=== PATIENT | female | born 1950 | race Two or more races ===

== ENCOUNTER 2017-06-26 13:00 | Outpatient (AMBR) | payer MEDICARE, MEDICAID, SELFPAY ==
--- NOTE | 2017-06-23 14:15 | PT.OIERPT ---
PT OP Initial Eval Patient Information Visit Reasons: BACK PAIN Medical Diagnosis: M15.9 Treatment Dx #1: Back Pain Start of Care: 06/23/17 Date of Onset: 6 months ago Initial Assessment Subjective Pt is a 67 y/o female c/o chronic back and hip pain (06/26) started several months ago. Pt mention that her back has arthritis and pinch nerve. Pt currently has difficulty with prolonged sitting, standing, lifting, chores, cooking, cleaning, and self care activities. Objective L/S AROM: all motions are WFL but pain towards end range in all plane Hip PROM: all motions are WFL except IR Hip MMTs: grossly 3+/5 Oswestry score: 24% Assessment Pt demonstrate back pain with mobility deficits leading to decline function and difficulty with ADLs. Pt will benefit from physical therapy to increase strength, mobility, and work on functional tasks. Short Term and Custodial Goals 1) Increase L/S AROM WNL and decrease oswestry score to 10% in 4 wks to be able to perform ambulation with less difficulty 2) Increase bilateral hip AROM WFL in 4 wks to be able to perform self care activities 3) Decrease back pain to 2/10 in 4 wks to be able to perform chores 4) Indep with HEP Treatment Plan 1) Manual Therapy 2) Therapeutic Activities 3) Therapeutic Exercises 4) Modalities (ice, heat, e-stim) Frequency and Duration 2 x wk for 4 wks Certification Dates: 06/23/17 to 09/23/17 Office Procedures PT Outpatient G-Codes Date of Service PT Date of Service: 06/23/17 G-Codes Walking & Moving Around Mobility Current Status G-Code: G8978: CK 40-60% Mobility Status G-Code: G8979: CI 1-20% PT Procedures PT Date of Service: 06/23/17 OP PT Eval Mod Complex 30 minutes: Yes
--- NOTE | 2017-06-23 14:22 | PTNOTE_ITS ---
PT OP Initial Eval Patient Information Visit Reasons: BACK PAIN Medical Diagnosis: M15.9 Treatment Dx #1: Back Pain Start of Care: 06/23/17 Date of Onset: 6 months ago Initial Assessment Subjective Pt is a 67 y/o female c/o chronic back and hip pain (06/26) started several months ago. Pt mention that her back has arthritis and pinch nerve. Pt currently has difficulty with prolonged sitting, standing, lifting, chores, cooking, cleaning, and self care activities. Objective L/S AROM: all motions are WFL but pain towards end range in all plane Hip PROM: all motions are WFL except IR Hip MMTs: grossly 3+/5 Oswestry score: 24% Assessment Pt demonstrate back pain with mobility deficits leading to decline function and difficulty with ADLs. Pt will benefit from physical therapy to increase strength , mobility, and work on functional tasks. Short Term and Nursing Home Goals 1) Increase L/S AROM WNL and decrease oswestry score to 10% in 4 wks to be able to perform ambulation with less difficulty 2) Increase bilateral hip AROM WFL in 4 wks to be able to perform self care activities 3) Decrease back pain to 2/10 in 4 wks to be able to perform chores 4) Indep with HEP Treatment Plan 1) Manual Therapy 2) Therapeutic Activities 3) Therapeutic Exercises 4) Modalities (ice, heat, e-stim) Frequency and Duration 2 x wk for 4 wks Certification Dates: 06/23/17 to 09/23/17 Office Procedures PT Outpatient G-Codes Date of Service PT Date of Service: 06/23/17 G-Codes Walking & Moving Around Mobility Current Status G-Code: G8978: CK 40-60% Mobility Status G-Code: G8979: CI 1-20% PT Procedures PT Date of Service: 06/23/17 OP PT Eval Mod Complex 30 minutes: Yes
--- NOTE | 2017-06-26 14:26 | PT.ODAYNRPT ---
PT Outpatient Daily Note Date of Service: June 26, 2017 OP Daily Note Visit Reasons: BACK PAIN Outpatient Physical Therapy Treatment Date: 06/26/17 Subjective: pt reported having soreness of the back upon visit today. Objective: see flow sheet. Assessment: pt did well today and tolerated all ther ex with no increase in soreness nor had pain. pt needed cuing to keep trunk upright position during standing exercise. noted good mobility during exercises in supine and no facial expressions. pt had no questions post ther ex. Plan: continue POC per PT. Length of Time (minutes) of Treatment: 30 Minutes Office Procedures PT Outpatient G-Codes Date of Service PT Date of Service: 06/23/17 G-Codes Walking & Moving Around Mobility Current Status G-Code: G8978: CK 40-60% Mobility Status G-Code: G8979: CI 1-20% PT Procedures PT Date of Service: 06/23/17 OP PT Eval Mod Complex 30 minutes: Yes PT Procedures PT Date of Service: 06/26/17 Therapeutic Exercise 30 minutes: Yes
== END 2017-07-17 23:59 ==
PROVIDERS: PCP Family Medicine; Referring Provider Family Medicine; Visit Provider Internal Medicine Rheumatology
DX: I10 Essential (primary) hypertension (principal)
CPT/HCPCS: 97110; 97162; G8978; G8979

== ENCOUNTER 2020-04-19 08:53 | Outpatient (AMBR) | payer MEDICARE, MEDICAID, SELFPAY ==
--- NOTE | 2020-04-19 09:10 | PT.OIERPT ---
PT OP Initial Eval Patient Information Visit Reasons: wrist pain Medical Diagnosis: M25.531 Treatment Dx #1: B wrist and hand pain Start of Care: 04/19/20 Date of Onset: 4 weeks ago Initial Assessment Subjective Pt is 70 yr old occitan speaking female who reports long Hx of rheumatoid arthritis in the hands and wrists. About 4 weeks ago the pain worsened in the hands, wrists and R elbow. Increased pain in the morning and with HH chores, lifting and carrying objects. PLOF: pt had full use of hands and wrists without pain. Pain level is 8-9/10 in the wrists and hands. 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 PMH: RA, thyroidism, GERD, anxiety, tinnitis Imaging: with provider Pt goal: not sure how therapy can help arthritis Objective B hand manager custom strength: R: 7 lbs, L 8 lbs Digit extension: to neutral Flexion: limited to about 50% in all planes Wrist ROM: Flexion: 45 deg B Extension: 40 deg TTP: B wrists moderate Observation: hypertrophic joints of hand with medial/lateral deviations Assessment Pt presentation consistent with PMH of RA with decreased hand strength, ROM and increased pain. Pt has very weak manager custom strength B and 1st MCP's are unable to extend, only flex. Pt requires skilled therapy to reduce pain and improve ROM and she has fair rehab potential. Short Term and Buttonhole Maker Hand Goals 1. Ind with HEP 2. Improved manager custom strength to at least 12 lbs B 3. Pt will be able to lift and carry objects like a plate without dropping Treatment Plan 60 day POC to complete visits 1. Manual therapy 2. Therex 3. Modalities as indicated, moist heat, ice, estim Frequency and Duration 2x a week for 4 weeks Certification Dates: 04/19/20 to 07/20/20 Office Procedures PT Procedures PT Date of Service: 04/19/20 OP PT Eval Mod Complex 30 minutes: Yes
== END 2020-05-17 23:59 | disposition home or self-care (01) ==
PROVIDERS: PCP Family Medicine; Referring Provider Family Medicine; Visit Provider Nurse Practitioner Family
DX: M25.531 Pain in right wrist (principal); M25.532 Pain in left wrist
CPT/HCPCS: 97162

== ENCOUNTER → 2024-02-25 | Outpatient (CLI) | payer MEDICARE, MEDICAID, SELFPAY ==
--- NOTE | 2024-02-25 | XR_ITS ---
Examination: Lumbar spine 7 views Technique one AP lateral coned lateral lower lumbar spine standing lateral flexion standing lateral extension LECHUGA MARCO ANTONIO 7 views Exam date and time: February 25, 2024 1209 hours INDICATIONS: Patient fell 2 days ago with injury to lower back, lower back pain. FINDINGS: Severe osteopenia Lower lumbar dextroscoliosis 16 degrees Diffuse advanced facet arthropathy No acute lumbar fracture Grade 1 anterolisthesis L3 on L2 Diffuse advanced lumbar degenerative disc disease IMPRESSION: No acute lumbar fracture Diffuse advanced lumbar degenerative disc disease No significant range of motion to flexion and extension
== END | disposition home or self-care (01) ==
PROVIDERS: PCP Family Medicine; Referring Provider Physical Medicine & Rehabilitation Pain Medicine; Visit Provider Physical Medicine & Rehabilitation Pain Medicine
DX: M51.369 Other intervertebral disc degeneration, lumbar region without mention of lumbar back pain or lower extremity pain (principal); S39.92XA Unspecified injury of lower back, initial encounter; W19.XXXA Unspecified fall, initial encounter
CPT/HCPCS: 72114

== ENCOUNTER → 2024-03-12 | Outpatient (CLI) | payer MEDICARE, MEDICAID, SELFPAY ==
--- NOTE | 2024-03-12 10:46 | XR_ITS ---
EXAMINATION: Cervical spine, 5 views Technique: Cervical spine AP, AP odontoid, lateral, bilateral obliques, 5 views Exam date and time: March 12, 2024 1058 hours INDICATIONS: Patient fell 2 weeks ago with injury to the neck, neck pain. FINDINGS: 1.5 mm anterolisthesis C5 on C4 No cervical fracture Intact odontoid Moderate to advanced degenerative disc disease C4-C5, C5-C6, C6-C7 with mild to moderate bilateral neural foraminal stenosis at these levels IMPRESSION: No acute fracture
== END | disposition home or self-care (01) ==
PROVIDERS: PCP Nurse Practitioner Family; Referring Provider Nurse Practitioner Family; Visit Provider Nurse Practitioner Family
DX: S19.9XXA Unspecified injury of neck, initial encounter (principal); W19.XXXA Unspecified fall, initial encounter
CPT/HCPCS: 72050

== ENCOUNTER → 2024-05-24 | Outpatient (CLI) | payer MEDICARE, MEDICAID, SELFPAY ==
[2024-05-24 14:22] LABS: Basophils % (Auto) 0 % (0-2.5); Eosinophils % (Auto) 1 % (0-10); Hematocrit 35.8 % (36.0-46.0); Hemoglobin 12.5 g/dL (12.0-16.0); Immature Granulocytes % (Auto) 0 % (0-0); Immature Granulocytes Auto 0.03 Thou/mm3 (0.00-0.00); Lymphocytes # (Auto) 1.9 Thou/mm3 (1.0-4.8); Lymphocytes % (Auto) 22 % (10-50); Mean Corpuscular HGB Conc 34.9 g/dl (31.0-37.0); Mean Corpuscular Hemoglobin 33.4 pg (25.0-35.0); Mean Corpuscular Volume 96 fL (80-100); Monocytes # (Auto) 0.5 Thou/mm3 (0.0-0.8); Monocytes % (Auto) 5 % (0-12); Neutrophils # (Auto) 6.2 Thou/mm3 (1.8-7.7); Neutrophils % (Auto) 72 % (37-80); Nucleated Red Blood Cell % 0 /100 WBC (0); Platelet Count 215 Thou/mm3 (140-440); RDW Standard Deviation 45.5 fL (36.4-46.3); Red Blood Count 3.74 Miln/mm3 (4.00-5.20); White Blood Count 8.7 Thou/mm3 (3.6-11.0)
[2024-05-24 14:34] LABS: Anion Gap 6 (7-16); BUN/Creatinine Ratio 13 Ratio (12-20); Blood Urea Nitrogen 12 mg/dL (9-23); Calcium 8.8 mg/dL (8.3-10.6); Calcium (Corrected) 8.8 mg/dL (8.5-10.1); Carbon Dioxide 30.1 mMol/L (20.0-31.0); Chloride 101 mMol/L (98-107); Creatinine (Component) 0.9 mg/dL (0.6-1.3); Glucose 134 mg/dL (74-106); Osmolality,Calculated 275 (275-295); Phosphorous 4.3 mg/dL (2.4-5.1); Potassium 4.3 mMol/L (3.4-5.1); Sodium 137 mMol/L (136-145); eGFR > 60 See Note
[2024-05-24 16:08] LABS: Sed Rate (ESR) 7 mm/hr (0-30)
[2024-05-31 06:43] LABS: hs-CRP* 4.2 mg/L
== END | disposition home or self-care (01) ==
PROVIDERS: PCP Family Medicine; Referring Provider Ophthalmology; Visit Provider Ophthalmology
DX: H49.11 Fourth [trochlear] nerve palsy, right eye (principal)
CPT/HCPCS: 36415; 80069; 85025; 85652; 86141

== ENCOUNTER 2024-05-28 16:20 | Emergency (ER) | payer MEDICARE, MEDICAID, SELFPAY ==
[2024-05-28 16:42] VITALS: BP 144/74; PULSE 69; RESP 17; TEMP 36.9; O2SAT 96; BMI 24.2
--- NOTE | 2024-05-28 16:56 | XR_ITS ---
Examination: CT brain head without contrast. 2-D sagittal coronal reconstructions Date and time of exam:May 28, 2024 1718 hrs. Indications: Right hip pain and dizziness beginning 2 weeks ago CTDI: vol (mGy):45.7 DLP: (mGycm):854 Technique: Multiple CT axial sections of the brain have been obtained, 5 mm slice thickness. Contrast has not been administered. 2-D sagittal, coronal reconstructions have been obtained Low dose protocols were performed. One or more of the following dose reduction techniques were used; automated exposure control, adjustment of the mA and/or KV according to patient size, use of iterative reconstruction technique. Findings: No significant ventricular enlargement. Intra-axial or extra-axial hemorrhage density is not seen. No mass effect or midline shift Basal cisterns are not remarkable. Fourth ventricle is midline. Cranial vault intact. Significant right chronic mastoiditis Impression: Negative for acute hemorrhage, mass effect or midline shift
--- NOTE | 2024-05-28 16:57 | PD.EDRME ---
Rapid Medical Screening Exam RME Arrival date/time: 05/28/24 16:20 74-year-old female presents to the emergency department for complaints of headache Chief Complaint: Headache Vital signs: Vital Signs Temperature 98.5 F 05/28/24 16:42 Pulse Rate 69 05/28/24 16:42 Respiratory Rate 17 05/28/24 16:42 Blood Pressure 144/74 H 05/28/24 16:42 Pulse Oximetry (%) 96 05/28/24 16:42 Oxygen Delivery Method Room Air 05/28/24 16:42
[2024-05-28 17:40] LABS: Basophils % (Auto) 1 % (0-2.5); Eosinophils # (Auto) 0.1 Thou/mm3 (0.0-0.5); Eosinophils % (Auto) 1 % (0-10); Hematocrit 37.4 % (36.0-46.0); Hemoglobin 13.4 g/dL (12.0-16.0); Immature Granulocytes % (Auto) 0 % (0-0); Immature Granulocytes Auto 0.01 Thou/mm3 (0.00-0.00); Lymphocytes # (Auto) 1.6 Thou/mm3 (1.0-4.8); Lymphocytes % (Auto) 25 % (10-50); Mean Corpuscular HGB Conc 35.8 g/dl (31.0-37.0); Mean Corpuscular Hemoglobin 32.8 pg (25.0-35.0); Mean Corpuscular Volume 91 fL (80-100); Monocytes # (Auto) 0.6 Thou/mm3 (0.0-0.8); Monocytes % (Auto) 10 % (0-12); Neutrophils # (Auto) 3.9 Thou/mm3 (1.8-7.7); Neutrophils % (Auto) 62 % (37-80); Nucleated Red Blood Cell % 0 /100 WBC (0); Platelet Count 228 Thou/mm3 (140-440); RDW Standard Deviation 42.7 fL (36.4-46.3); Red Blood Count 4.09 Miln/mm3 (4.00-5.20); White Blood Count 6.2 Thou/mm3 (3.6-11.0)
[2024-05-28 17:57] LABS: Glucose Estimated Average 105 mg/dL (80-131); Hemoglobin A1C 5.3 % Hgb (4.8-6.0)
[2024-05-28 17:58] LABS: Alanine Aminotransferase 14 U/L (10-49); Albumin, Serum 4.4 gm/dL (3.4-4.8); Albumin/Globulin Ratio 1.5 (1.2-2.2); Alkaline Phosphatase 63 U/L (46-116); Anion Gap 7 (7-16); Aspartate Amino Transferase 27 U/L (0-34); BUN/Creatinine Ratio 15 Ratio (12-20); Bilirubin,Total 0.8 mg/dL (0.3-1.2); Blood Urea Nitrogen 12 mg/dL (9-23); Calcium 9.3 mg/dL (8.3-10.6); Calcium (Corrected) 9.3 mg/dL (8.5-10.1); Carbon Dioxide 28.3 mMol/L (20.0-31.0); Chloride 101 mMol/L (98-107); Creatinine (Component) 0.8 mg/dL (0.6-1.3); Estimated Creatinine Clearance 45.7 mL/min (>60); Glucose 107 mg/dL (74-106); Osmolality,Calculated 271 (275-295); Potassium 3.8 mMol/L (3.4-5.1); Sodium 136 mMol/L (136-145); Total Protein 7.4 gm/dL (5.7-8.2); eGFR > 60 See Note
--- NOTE | 2024-05-28 20:49 | PD.EDHA ---
ED Headache RME/HPI General Chief Complaint: Headache Stated Complaint: headache and diplopia Time Seen by Provider: 05/28/24 18:55 Arrival date/time: 05/28/24 16:20 RME / HPI RME / HPI Narrative: 74-year-old female patient came in for evaluation regarding headache. Patient's been having a headache for more than 2 weeks, associated with diplopia. Patient was already seen by PCP, and was referred to branch service specialist which the patient's saw few days ago. Her branch service specialist ordered laboratory workup and possible MRI outpatient. Patient headache is getting worst, describes dull ache, severity moderate, for the last few days that is where the patient decided to go to the emergency room. Patient is ambulatory. Denies any other complaints no medications taken prior to arrival. Denies any head trauma or fall. Denies any fever. Denies any slurring of speech. Related Data Home Medications ?Medication ?Instructions ?Recorded ?Confirmed Levothyroxine * (SYNTHROID *) 100 mcg PO QDAY ##0 10/10/07 Propranolol Hcl 20 mg PO HS ##0 05/14/13 08/19/23 omeprazole 20 mg capsule,delayed 20 mg PO HS ##0 05/14/13 08/19/23 release (Prilosec) atorvastatin 10 mg tablet 10 mg PO QDAY 08/19/23 08/19/23 fexofenadine 180 mg tablet 180 mg PO QDAY 08/19/23 08/19/23 gabapentin 100 mg capsule 100 mg PO TID 08/19/23 08/19/23 lidocaine 5 % topical patch 1 patch topical 08/19/23 meloxicam 7.5 mg tablet 7.5 mg PO BID 08/19/23 08/19/23 naproxen 500 mg tablet 500 mg PO Q12H PRN Pain 08/19/23 08/19/23 quetiapine 50 mg tablet 25 mg PO HS 08/19/23 08/19/23 Previous Rx's ?Medication ?Instructions ?Recorded acetaminophen 300 mg-codeine 30 mg 1 tab PO TID PRN pain #20 tabs 05/28/24 tablet Allergies Allergy/AdvReac Type Severity Reaction Status Date / Time No Known Allergies Allergy Verified 05/28/24 16:23 Review of Systems Review of Systems Narrative Review of Systems: Review of system reviewed and within normal limits except mentioned in HPI ED Exam Narrative Physical exam: VITAL SIGNS: Reviewed. GENERAL APPEARANCE: Alert and interactive, follows commands, no acute distress, HEAD AND FACE: Non-traumatic. ENT: PERRL, pink conjunctivitis, eyelid no trauma, Mucous membrane moist., Patient told me that she is seeing double vision all the time. NECK: Supple, nontender, no nuchal rigidity. CHEST: No tenderness, no crepitus, no paradoxical movement, no retractions. LUNGS: Clear, well ventilated, symmetric, no rales, no wheezing, no ronchi, no stridor, good breath sounds bilaterally. HEART: Regular rate, regular rhythm, no murmur, no gallops. ABDOMEN: Soft, positive bowel sounds, nondistended, no guarding, nontender, no rebound, no masses, RECTAL: Deferred. GENITAL: Deferred. NEUROLOGICAL: Gross motor function intact sensory function intact, Appropriate for age. MUSCULOSKELETAL: low back nontender, full range of motion. EXTREMITIES: Nontender, full range of motion. SKIN: Color pink, dry, no rash, no lacerations, no abrasions, no contusions. LYMPHATICS: Deferred. Course Quality Measures none Orders Category Date Time Status CT head/brain wo con Stat Exams 05/28/24 16:56 Completed A1C [Glycohemoglobin w (eAG)] Stat Lab 05/28/24 17:26 Completed CBC Stat Lab 05/28/24 17:26 Completed CMP [Comprehensive Metabolic Panel] Stat Lab 05/28/24 17:26 Completed Ketorolac Inj [Toradol Inj] Med 05/28/24 20:21 Discontinued 30 mg IM X1 ONE Vital Signs Vital signs: Vital Signs Temperature 98.5 F 05/28/24 16:42 Pulse Rate 69 05/28/24 16:42 Respiratory Rate 17 05/28/24 16:42 Blood Pressure 144/74 H 05/28/24 16:42 Pulse Oximetry (%) 96 05/28/24 16:42 Oxygen Delivery Method Room Air 05/28/24 16:42 Headache MDM Narrative MDM Narrative:: 74-year-old female patient came in for evaluation regarding headache. Patient's been having a headache for more than 2 weeks, associated with diplopia. Patient was already seen by PCP, and was referred to branch service specialist which the patient's saw few days ago. Her branch service specialist ordered laboratory workup and possible MRI outpatient. Patient headache is getting worst, describes dull ache, severity moderate, for the last few days that is where the patient decided to go to the emergency room. Patient is ambulatory. Denies any other complaints no medications taken prior to arrival. Denies any head trauma or fall. Denies any fever. Denies any slurring of speech. Patient's workup today all came back unremarkable CBC no leukocytosis no sign of infection, CMP unremarkable hemoglobin A1c is normal CT scan of the head also came back unremarkable. Results discussed with the patient. And family Patient was advised to follow-up with the branch service specialist again for her symptoms. Patient told me that she had an appointment in few days Patient data External records reviewed:: None Clinical information provided by:: patient and family Social determinants that could affect healthcare access:: none Patient has the following chronic illnesses:: Hypertension How is presenting disease/condition affected by chronic disease/condition?: uneffected by Evaluation data The following diagnostics were reviewed and interpreted by me:: lab results and radiology exam(s) Lab and/or radiology exams considered but not ordered:: None Interpretation Summary: See results MDM Medications / Prescriptions Medications or Prescriptions considered but not ordered:: None Medication administrations:: Medication Administration History Discontinued Medications Ketorolac Tromethamine (Ketorolac Inj 60 Mg/2 Ml Vial) 30 mg IM X1 ONE Stop: 05/28/24 20:22 Toradol IM Consultations Consultation(s) initiated? (list below): No Diagnosis Differential diagnosis headache: tension headache and headache Most likely diagnosis given after review of the tests above:: Diplopia, headache Admission Indicated Admission indicated?: not indicated Admission Request Was there a request for admission?: No Disposition Plan Disposition Plan: Discharge Discharge Attestation Discharge Attestation: The patient and all family members were given an opportunity to ask questions and understood the discharge instructions. Discharge instructions specifically effects, indications for sooner follow up or return to the emergency department, and the expected course of current diagnosis. Patient condition: Stable Discharge Plan Plan Patient Disposition: HOME (Self Care) Disposition Comment: Stable Prescriptions/Referrals Prescriptions/Med Rec: New acetaminophen-codeine 300-30 mg tablet 1 tab PO TID PRN (Reason: pain) Qty: 20 0RF No Action Levothyroxine * (SYNTHROID *) 75 MCG tablet 100 mcg PO QDAY Qty: 0 Patient Comments: 1 TAB DAILY omeprazole [Prilosec] 20 MG capsule,delayed release(DR/EC) 20 mg PO HS Qty: 0 Patient Comments: TO SUPPRESS GASTRIC ACID SECRETIONS Propranolol Hcl 20 MG tablet 20 mg PO HS Qty: 0 atorvastatin 10 mg tablet 10 mg PO QDAY Patient Comments: AGGIE SOUSA JESSIESheree MADALYN HERNANDEZ D FOR 90 DAYS fexofenadine 180 mg Tablet 180 mg PO QDAY meloxicam 7.5 mg tablet 7.5 mg PO BID Patient Comments: TAKE 1 TABLET BY MOUTH TWICE A DAY NEEDED WITH FOOD lidocaine 5 % adhesive patch,medicated 1 patch TOPICAL Patient Comments: APPLY 1 PATCH DAILY EXTERNALLY AND REMOVE AFTER 12 HOURS FOR 30 DAYS. gabapentin 100 mg capsule 100 mg PO TID Patient Comments: TAKE 1 CAPSULE BY MOUTH THREE TIMES A DAY naproxen 500 mg Tablet 500 mg PO Q12H PRN (Reason: Pain) quetiapine 50 mg tablet 25 mg PO HS Referrals: Russell Redmond MD [Primary Care Provider] - In 1 week Problem List Clinical Impression: Headache, Diplopia Patient/Caregiver Discharge Instructions Discharge Activity: activity as tolerated Education Materials: Self-Care for Headaches Additional Instructions: Thank you for the opportunity for serving you today. You are stable for discharged . You are advised to: Follow-up with your PCP in 1 to 2 days Follow-up with your branch service specialist as instructed Return to ED for worsening of symptoms Increase oral fluids Take medication as prescribed Print Language: Omani Stand Alone Forms: Sonia Award Info., Patient Portal Info Letter
[2024-05-28] MEDS: KETOROLAC INJ 60 MG/2 ML VIAL 30 MG IM (21:04)
== END 2024-05-28 21:10 | disposition home or self-care (01) ==
PROVIDERS: Nurse Practitioner Primary Care; Emergency Provider Emergency Medicine; PCP Family Medicine
DX: R51.9 Headache, unspecified (principal); H53.2 Diplopia
CPT/HCPCS: 36415; 70450; 80053; 83036; 85025; 96372; 99284; J1885

== ENCOUNTER → 2024-07-20 | Outpatient (CLI) | payer MEDICARE, MEDICAID, SELFPAY ==
[2024-07-20 11:26] LABS: C-Reactive Protein < 0.5 mg/dL (0.0-0.9)
== END | disposition home or self-care (01) ==
LOC: COPL 10:00
PROVIDERS: PCP Family Medicine; Referring Provider Family Medicine; Visit Provider Family Medicine
DX: M31.6 Other giant cell arteritis (principal)
CPT/HCPCS: 36415; 86140

== ENCOUNTER → 2024-10-27 | Outpatient (CLI) | payer MEDICARE, MEDICAID, SELFPAY ==
[2024-10-27 09:30] LABS: Basophils # (Auto) 0.0 Thou/mm3 (0.0-0.2); Basophils % (Auto) 1 % (0-2.5); Eosinophils # (Auto) 0.1 Thou/mm3 (0.0-0.5); Eosinophils % (Auto) 1 % (0-10); Hematocrit 40.1 % (36.0-46.0); Hemoglobin 13.5 g/dL (12.0-16.0); Immature Granulocytes Auto 0.01 Thou/mm3 (0.00-0.00); Lymphocytes # (Auto) 1.5 Thou/mm3 (1.0-4.8); Lymphocytes % (Auto) 35 % (10-50); Mean Corpuscular HGB Conc 33.7 g/dl (31.0-37.0); Mean Corpuscular Hemoglobin 32.0 pg (25.0-35.0); Mean Corpuscular Volume 95 fL (80-100); Monocytes # (Auto) 0.4 Thou/mm3 (0.0-0.8); Monocytes % (Auto) 9 % (0-12); Neutrophils # (Auto) 2.4 Thou/mm3 (1.8-7.7); Neutrophils % (Auto) 55 % (37-80); Nucleated Red Blood Cell # 0.00 Thou/mm3 (0.00-0.00); Nucleated Red Blood Cell % 0 /100 WBC (0); Platelet Count 180 Thou/mm3 (140-440); RDW Standard Deviation 46.1 fL (36.4-46.3); Red Blood Count 4.22 Miln/mm3 (4.00-5.20); White Blood Count 4.4 Thou/mm3 (3.6-11.0)
[2024-10-27 09:53] LABS: Alanine Aminotransferase 19 U/L (10-49); Albumin, Serum 4.4 gm/dL (3.4-4.8); Albumin/Globulin Ratio 1.6 (1.2-2.2); Alkaline Phosphatase 63 U/L (46-116); Anion Gap 7 (7-16); Aspartate Amino Transferase 28 U/L (0-34); BUN/Creatinine Ratio 16 Ratio (12-20); Bilirubin,Total 1.2 mg/dL (0.3-1.2); Blood Urea Nitrogen 13 mg/dL (9-23); Calcium 9.3 mg/dL (8.3-10.6); Calcium (Corrected) 9.3 mg/dL (8.5-10.1); Carbon Dioxide 30.2 mMol/L (20.0-31.0); Chloride 105 mMol/L (98-107); Cholesterol 196 mg/dL (132-200); Creatinine (Component) 0.8 mg/dL (0.6-1.3); Globulin 2.8 gm/dL (2.3-3.5); Glucose 96 mg/dL (74-106); Osmolality,Calculated 283 (275-295); Potassium 4.6 mMol/L (3.4-5.1); Sodium 142 mMol/L (136-145); Thyroid Stimulating Hormone 0.19 uIU/mL (0.55-4.78); Total Protein 7.2 gm/dL (5.7-8.2); eGFR > 60 See Note
[2024-10-27 09:55] LABS: T4 (Thyroxine) 10.1 mcg/dL (4.5-10.9)
== END | disposition home or self-care (01) ==
LOC: COPL 07:54
PROVIDERS: PCP Family Medicine; Referring Provider Family Medicine; Visit Provider Family Medicine
DX: E78.01 Familial hypercholesterolemia (principal); E03.9 Hypothyroidism, unspecified; F33.40 Major depressive disorder, recurrent, in remission, unspecified
CPT/HCPCS: 36415; 80053; 82465; 84436; 84443; 85025